=== PATIENT | female | born 1945 | race Caucasian/White ===

== ENCOUNTER 2019-08-08 18:21 | Emergency (ER) | payer MEDICARE ==
--- NOTE | 2019-08-08 19:27 | RAD ---
THREE VIEWS LEFT WRIST: Date: 08-08-2019 Comparison: None History: Left wrist pain, deformity, fall. FINDINGS: There is a comminuted impacted intraarticular fracture of the distal left radius with dorsal displace ment and dorsal angulation. No evidence for dislocation. IMPRESSION: Comminuted impacted intraarticular fracture of the distal left radius. POS: [facility]
== END 2019-08-08 20:06 | disposition home or self-care (01) ==
LOC: ERS 18:21
DX: S52.572A Other intraarticular fracture of lower end of left radius, initial encounter for closed fracture (principal); E78.5 Hyperlipidemia, unspecified; I10 Essential (primary) hypertension; J45.909 Unspecified asthma, uncomplicated; Z79.82 Long term (current) use of aspirin; Z79.899 Other long term (current) drug therapy; W01.0XXA Fall on same level from slipping, tripping and stumbling without subsequent striking against object, initial encounter
CPT/HCPCS: 25600

== ENCOUNTER 2019-08-19 06:39 | Outpatient (CLI) | payer MEDICARE, OTHER ==
[2019-08-20 14:25] LABS: SARS-CoV-2 MS2 Positive; SARS-CoV-2 N Gene Negative; SARS-CoV-2 S Gene Negative; SARS-CoV-2 orf1ab Negative
== END 2019-08-19 06:40 | disposition home or self-care (01) ==
LOC: LABBT 06:39
PROVIDERS: ATTEND Orthopaedic Surgery
DX: Z01.818 Encounter for other preprocedural examination (principal); Z11.59 Encounter for screening for other viral diseases; S52.502A Unspecified fracture of the lower end of left radius, initial encounter for closed fracture
CPT/HCPCS: 87635; U0003

== ENCOUNTER 2019-08-23 10:07 | Day surgery (SDC) | payer MEDICARE ==
[2019-08-18 12:54] VITALS: BMI 27.3
[2019-08-23] MEDS ORDERED: Fentanyl 100 MCG/2 ML VIAL ONE ×5 (10:44→14:31)
[2019-08-23] MEDS ORDERED: Midazolam HCl 2 mg/2 ml Vial ONE (10:44)
[2019-08-23] MEDS ORDERED: PROPOFOL 200 MG/20 ML VIAL ONE (12:05)
[2019-08-23] MEDS ORDERED: Bupivacaine HCl 0.5%/Epinephrine 1:200,000/PF 30 ml Vial ONE (12:05)
[2019-08-23] MEDS ORDERED: EPHEDRINE 25 MG/5 ML SYRINGE ONE (12:05)
[2019-08-23] MEDS ORDERED: PHENYLEPHRINE-NS 100 MCG/ML 10 ML SYRINGE ONE (12:05)
[2019-08-23] MEDS ORDERED: Dexamethasone 20 MG/5 ML VIAL ONE (12:05)
[2019-08-23] MEDS ORDERED: Ondansetron PF 4 MG/2 ML Vial ONE (12:05)
[2019-08-23] MEDS ORDERED: Lidocaine 1% PF 5 ML VIAL ONE (12:05)
[2019-08-23] MEDS ORDERED: Morphine 4 MG/ML VIAL ONE (13:51)
[2019-08-23] MEDS ORDERED: Morphine 2 MG/ML SYRINGE ONE ×3 (14:09→14:28)
[2019-08-23] MEDS ORDERED: Ketorolac Tromethamine 30 MG/ML VIAL ONE (14:21)
--- NOTE | 2019-08-23 15:15 | RAD ---
EXAM: 2 views of the left wrist COMPARISON: 08/08/2019 HISTORY: Distal radius fracture FINDINGS/IMPRESSION: 2 limited fluoroscopic views of the left wrist shows the patient is status post plate and screw fixation of the intra-articular distal radius fracture. No perihardware lucency is seen.
--- NOTE | 2019-08-24 08:27 | OP ---
DATE OF PROCEDURE: 08/23/2019 OPERATION PERFORMED: Open reduction and internal fixation of left distal radius fracture. PREOPERATIVE DIAGNOSIS: Displaced and dorsally angulated left distal radius fracture. POSTOPERATIVE DIAGNOSIS: Displaced and dorsally angulated left distal radius fracture. COMPLICATIONS: None. ESTIMATED BLOOD LOSS: Minimal. AGITATOR OPERATOR: Ld Hernandez PA-C. IMPLANT: Synthes volar distal radial plate with multiple locking and nonlocking screws were utilized. INDICATIONS: Ms. Valdes is a 74-year-old female who fell and fractured her left distal radius. She had a dorsally displaced and shortened fracture. She was indicated for open reduction and internal fixation to restore anatomic alignment and promote healing. Risks have been reviewed in detail. She elected to proceed with the operation. DESCRIPTION OF PROCEDURE: Ms. Valdes was identified in the preoperative holding area. Her correct extremity was marked. She was carried to the operating room. She was positioned supine. General anesthesia was induced. A multidisciplinary time-out was performed. The left upper extremity was prepped and draped in sterile fashion. We began the procedure with an FCR approach to the distal radius. We dissected down through the subcutaneous tissues to the FCR tendon. The tendon sheath was opened. We then cleared the underlying soft tissues. At this point, we exposed the pronator quadratus. It was elevated from the bone. We encountered the fracture at this point. It was displaced. We used a [place] elevator to reduce the fracture back into its anatomic position. We checked x-rays on alignment. We then placed our 3-hole Synthes plate. Multiple screws were placed proximally and distally. We applied screws throughout the distal aspect of the plate, which were locking screws. We took x-ray images, confirming hardware placement and alignment. There were no complications. At this point, we thoroughly irrigated with copious lavage. We then closed appropriately in layers. A sterile dressing was applied. The patient was taken to the recovery room in good condition. Job ID: [id number]
--- NOTE | 2019-08-26 07:51 | EKG ---
Test Reason : PREOP Blood Pressure : / mmHG Vent. Rate : 059 BPM Atrial Rate : 059 BPM P-R Int : 202 ms QRS Dur : 092 ms QT Int : 438 ms P-R-T Axes : 064 020 055 degrees QTc Int : 433 ms Sinus bradycardia Otherwise normal ECG No previous ECGs available Confirmed by DR. Javi MUNGUIA ([id number]) on 08/26/2019 7:51:43 AM Referred By: DEVORAH Confirmed By:DR. Javi MUNGUIA
== END 2019-08-23 17:02 | disposition home or self-care (01) ==
LOC: SDC 10:07
PROVIDERS: ATTEND Orthopaedic Surgery
PROC: 0PSJ04Z Reposition Left Radius with Internal Fixation Device, Open Approach (ICD-10-PCS; principal; 2019-08-23)
PROC: 3E0T3BZ Introduction of Anesthetic Agent into Peripheral Nerves and Plexi, Percutaneous Approach (ICD-10-PCS; 2019-08-23)
DX: S52.532A Colles' fracture of left radius, initial encounter for closed fracture (principal); S52.572A Other intraarticular fracture of lower end of left radius, initial encounter for closed fracture; G89.18 Other acute postprocedural pain; I10 Essential (primary) hypertension; G47.00 Insomnia, unspecified; F41.9 Anxiety disorder, unspecified; E78.00 Pure hypercholesterolemia, unspecified; M81.0 Age-related osteoporosis without current pathological fracture; Z86.73 Personal history of transient ischemic attack (TIA), and cerebral infarction without residual deficits; Z87.891 Personal history of nicotine dependence; Z79.82 Long term (current) use of aspirin; Z79.899 Other long term (current) drug therapy; Z88.1 Allergy status to other antibiotic agents; Z88.2 Allergy status to sulfonamides; W19.XXXA Unspecified fall, initial encounter
CPT/HCPCS: 76000; 93005; 93010; C1713; J0670; J0690; J1100; J1885; J2001; J2250; J2270; J2405; J2704; J3010

== ENCOUNTER 2019-09-30 07:43 | Outpatient (CLI) | payer MEDICARE ==
--- NOTE | 2019-09-30 08:07 | ULT ---
ULTRASOUND ABDOMINAL AORTA: HISTORY: Screening for abdominal aortic aneurysm FINDINGS: The abdominal aortic measurements are as follows: Proximal: 1.6 x 1.6 x 1.6cm Mid: 1.2 x 1.1 x 1.4cm Distal: 1.1 x 1.2 x 1.3cm IMPRESSION: No evidence of abdominal aortic aneurysm.
== END 2019-09-30 07:44 | disposition home or self-care (01) ==
LOC: BICULT 07:43
PROVIDERS: ATTEND Family Medicine
DX: Z13.6 Encounter for screening for cardiovascular disorders (principal)
CPT/HCPCS: 76706; 77063; 77067

== ENCOUNTER 2020-01-12 15:08 | Outpatient (CLI) | payer MEDICARE ==
--- NOTE | 2020-01-12 16:15 | BD ---
EXAM: Bone densitometry using DEXA HISTORY: 74 yo female. Screening for postmenopausal osteoporosis FINDINGS: L1--bone mineral density 0.728 g/sq cm; T score -2.4 ; Z score -0.3 L2--bone mineral density 0.739 g/sq cm; T score -2.6 ; Z score -0.3 L3--bone mineral density 0.793 g/sq cm; T score -2.6 ; Z score -0.2 L4--bone mineral density 0.718 g/sq cm; T score -3.1 ; Z score -0.6 Total L1-L4--bone mineral density 0.746 g/sq cm; T score -2.7 ; Z score -0.4 Left femoral neck--bone mineral density0.511; T score -3.0 ; Z score -1.0 Total proximal left femur--bone mineral density 0.727; T score -1.8 ; Z score -0.1 IMPRESSION: Osteoporosis
== END 2020-01-12 15:09 | disposition home or self-care (01) ==
LOC: BICMAMMO 15:08
PROVIDERS: ATTEND Family Medicine
DX: M81.0 Age-related osteoporosis without current pathological fracture (principal)
CPT/HCPCS: 77080

== ENCOUNTER 2020-11-29 09:09 | Outpatient (CLI) | payer MEDICARE | END 2020-11-29 09:10 | disposition home or self-care (01) | LOC: BICMAMMO 09:09 | PROVIDERS: ATTEND Family Medicine | DX: Z12.31 Encounter for screening mammogram for malignant neoplasm of breast (principal); Z85.3 Personal history of malignant neoplasm of breast; Z90.12 Acquired absence of left breast and nipple; Z98.82 Breast implant status | CPT/HCPCS: 77063; 77067 ==